=== PATIENT | male | born 1990 | race African-American/Black ===

== ENCOUNTER 2017-03-29 21:35 | Observation (INO) ==
[2017-03-29] MEDS ORDERED: DIPH/TET/ACEL PERT BOOSTER VACCINE 0.5 ML VIAL IM ONE ×2 (22:11→22:38)
[2017-03-29] MEDS ORDERED: ONDANSETRON 4 MG/2 ML VIAL IV STA (22:11)
[2017-03-29] MEDS ORDERED: LACTATED RINGERS 500 ML IV STA (22:11)
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
[2017-03-29] MEDS ORDERED: ONDANSETRON 4 MG/2 ML VIAL ONE ×2 (22:38→23:10)
[2017-03-29] MEDS ORDERED: ceFAZolin 1,000 MG VIAL ONE (22:38)
[2017-03-29] MEDS ORDERED: SODIUM CHLORIDE 0.9% 100 ML IV ONE (22:38)
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
[2017-03-29 23:09] LABS: Basophils % 0.4 % (0.0-0.8); Eosinophils # 0.1 10*3/uL (0.0-0.87); Hematocrit 38.2 VOL% (42.0-52.0); Hemoglobin 13.1 GM/DL (14.0-18.0); Immature Granulocytes % 0.5 %; Immature Granulocytes Absolute 0.04 #; Lymphocytes % 24.4 % (21.2-54.2); Mean Corpuscular HGB Conc 34.3 GM/DL (32-36); Mean Corpuscular Hemoglobin 31 PG (27-34); Mean Corpuscular Volume 90.3 FL (87-102); Mean Platelet Volume 10.6 FL (9.6-12.0); Monocytes % 12.5 % (1.7-12.7); Neutrophils % 61.2 % (38.7-73.9); Platelet Count 177 T/CUMM (130-400); Red Blood Count 4.23 MC/CUMM (3.8-5.5); Red Cell Distribution Width 13.6 % (9.3-17.3); White Blood Count 8.2 T/CUMM (4-12)
[2017-03-29] MEDS ORDERED: SUCCINYLCHOLINE 200 MG/10 ML VIAL ONE (23:10)
[2017-03-29] MEDS ORDERED: LIDOCAINE 2% 5 ML VIAL ONE (23:10)
[2017-03-29] MEDS ORDERED: ROCURONIUM 100 MG/10 ML VIAL IV ONE (23:10)
[2017-03-29] MEDS ORDERED: PHENYLEPHRINE 1 MG/10 ML SYRINGE IV ONE (23:10)
[2017-03-29] MEDS ORDERED: PROPOFOL 200 MG/20 ML VIAL IV ONE (23:10)
[2017-03-29] MEDS ORDERED: DEXAMETHASONE 4 MG/1 ML VIAL ONE (23:10)
[2017-03-29 23:45] LABS: Alanine Aminotransferase 27 U/L (16-61); Albumin 3.8 G/DL (3.4-5.0); Alkaline Phosphatase 72 U/L (45-117); Aspartate Amino Transferase 24 U/L (0-37); Bilirubin,Total < 0.39 MG/DL (0.2-1.0); Blood Urea Nitrogen 13 MG/DL (7-18); Calcium 8.9 MG/DL (8.5-10.1); Glucose 109 MG/DL (74-106); Magnesium 2.2 MG/DL (1.8-2.4); Osmolality,Calculated 283.1 MOS/KG (273-304); Potassium 3.6 MMOL/L (3.5-5.1); Sodium 142 MMOL/L (136-145); Total Protein 6.7 G/DL (6.4-8.3)
[2017-03-29] MEDS ORDERED: MUPIROCIN 2% OINT 22 GM TUBE TOP ONE (23:45)
--- NOTE | 2017-03-30 00:46 | Operative Note ---
Date of procedure: 03/30/17 Pre-op diagnosis: Right ear avulsion Post-op diagnosis: same Procedure: 1. 14 cm complex repair of a right ear avulsion/laceration After appropriate informed consent was signed and placed on the chart patient was taken back to the operative theater where a timeout was performed to verify correct patient with correct procedure. Patient was transferred in supine position onto the operative table where anesthesia performed general endotracheal anesthesia. The patient's right ear was sterilely prepped and draped. 5-0 fast absorbing gut suture was used in a [id number] fashion to reapproximate the avulsed superior helical rim of the cartilage to reestablish a auricular framework and foundation. 5-0 fast-absorbing gut in a simple interrupted fashion was used to reapproximate subcutaneous tissues throughout the superior auricular helix avulsion. 5-0 fast absorbing gut suture in a running locking fashion was used to reapproximate the epidermal portion of the auricular helical avulsion. Certain portions of the epidermis were denuded and allowed to heal secondarily. Additionally stellate portions of the auricular avulsion were reapproximated with simple interrupted 5-0 fast-absorbing gut suture. The immediately postauricular extension of the laceration was reapproximated with a deep 5-0 Vicryl suture and a subcutaneous 5 oh simple interrupted buried suture. Additionally 5-0 fast absorbing gut suture was used to reapproximate the postauricular epidermal laceration and all stellate portions of this. Total length of the laceration was 14 cm of a complex repair. Because of the tenuous 5 mm anterior helical rim attachment of the ear that was the remaining blood supply no lidocaine or epinephrine was used. The ear was dressed with mupirocin ointment and a [place] ear dressing. Patient was allowed to emerge from anesthesia uneventfully he will be taken to the postanesthesia care unit and ultimately discharged to home from the floor. Anesthesia: GETA Surgeon / Physician: Marty Galindo Estimated blood loss: minimal Specimens: none sent Condition: stable Disposition: floor Results - Labs CBC & BMP: 03/29/17 22:50 03/29/17 22:50 Discharge Plan - Discharge Data Disposition: Still a Patient - Follow Up or Referral - Forms/Instructions
[2017-03-30] MEDS ORDERED: MUPIROCIN 2% OINT 22 GM TUBE TOP SCH (00:47)
--- NOTE | 2017-03-30 00:51 | Anesthesia Post-Op ---
Anesthesia Post OP - Post Ansesthetic Evaluation Patient seen in post op: Yes Resp: within normal limits CV: within normal limits Mental: within normal limits Temp: within normal limits [id number]: within normal limits Nausea and Vomiting: within normal limits Pain: within normal limits
[2017-03-30] MEDS ORDERED: MIDAZOLAM 2 MG/2 ML VIAL ONE (00:56)
[2017-03-30] MEDS ORDERED: LACTATED RINGERS 2,000 ML IV ONE (00:56)
[2017-03-30] MEDS ORDERED: fentaNYL 100 MCG/2 ML VIAL ONE (00:56)
[2017-03-30] MEDS ORDERED: SEVOFLURANE 1 UNIT/15 MINUTE INH ONE (00:56)
[2017-03-30] MEDS ORDERED: LACTATED RINGERS 1,000 ML IV SCH (01:00)
[2017-03-30 04:30] VITALS: BP 129/83
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
== END 2017-03-30 04:00 | disposition home or self-care (01) ==
LOC: EDBD → EDUNIT# → N.ED 21:35 → N.3E 21:35
PROVIDERS: ADMIT Otolaryngology; ATTEND Otolaryngology